=== PATIENT | male | born 1975 | race African-American/Black ===

== ENCOUNTER 2018-01-22 18:10 | Emergency (ER) | payer OTHER ==
[~2018-01-22] VITALS: Ht 162.6 cm; Wt 90.7 kg
[2018-01-22 21:03] VITALS: BP 150/68; TEMP 98.8
== END 2018-01-22 21:03 | disposition home or self-care (01) ==
LOC: ED 18:10
DX: M79.621 Pain in right upper arm (principal)
CPT/HCPCS: 36415; 96372; 99283; J1020; J1885